=== PATIENT | female | born 2000 | race Caucasian/White ===

== ENCOUNTER 2020-02-07 17:11 | Emergency (ER) | payer OTHER ==
--- NOTE | 2020-02-07 17:19 | PDOC ---
Rapid Medical Evaluation Time Seen by Provider: 02/07/20 17:16 Medical Evaluation: Allergies Allergy/AdvReac Type Severity Reaction Status Date / Time No Known Allergies Allergy Verified 10/10/13 15:40 02/07/20 17:17 CC: rt flank pain radiaiting to rt back since wednesday now worsening sharp pain with nausea. No other complaints Exam: rt cva , flank tenderness, vss Plan: labs, urine, Discharge Disposition - Diagnosis Flank pain - Referrals - Patient Instructions - Post Discharge Activity
[2020-02-07] MEDS ORDERED: SODIUM CHLORIDE 1,000 ML IV STA (17:20)
[2020-02-07 17:23] VITALS: BP 144/90; PULSE 112; TEMP 99.3; BMI 30.8
[2020-02-07 18:48] LABS: BASO % 0.8 % (0-2.0); EOS % 5.2 % (0-4.5); HEMATOCRIT 26.3 % (32.4-45.2); MCHC 30.4 g/dl (32.0-36.0); MEAN CELL VOLUME 61.9 fl (80-96); MEAN PLT VOLUME 8.7 fl (7.5-11.1); MONO % 7.6 % (3.8-10.2); NEUT % 60.4 % (42.8-82.8); PLATELET COUNT 342 K/MM3 (134-434); RBC 4.26 M/mm3 (3.60-5.2); RDW 17.6 % (11.6-15.6); WHITE BLOOD COUNT 6.8 K/mm3 (4.0-10.0)
[2020-02-07 18:54] LABS: MCH 18.8 pg (25.7-33.7)
--- NOTE | 2020-02-07 18:57 | PDOC ---
History of Present Illness - General Chief Complaint: Pain Stated Complaint: DIZZI Time Seen by Provider: 02/07/20 17:16 History Source: Patient Exam Limitations: No Limitations - History of Present Illness Initial Comments: 02/07/20 18:53 Patient is a 19-year-old female with a history of hyperlipidemia who presents to the ED with complaint of 2 months of feeling dizzy. She describes the dizziness as feeling like she is moving when she has not. She states the symptoms started after her grandfather and after her sister was getting and moving out. She denies any chest pain, shortness of breath, weakness. She states that she was seen at an urgent care center and told that she was slightly anemic. The patient states that she has been feeling very anxious lately and believes her symptoms are likely secondary to feeling anxious. She also admits to having some right-sided abdominal pain that has been ongoing for the last 5 days. She states the pain is in her right flank region and radiates to her back. She denies any dysuria, hematuria, frequency or urgency. She denies any chest pain or shortness of breath. She denies any nausea or vomiting. She has been having normal bowel movements. She states her LMP was 02/02/2020. Past History - Medical History Allergies/Adverse Reactions: Allergies Allergy/AdvReac Type Severity Reaction Status Date / Time No Known Allergies Allergy Verified 10/10/13 15:40 Home Medications: Ambulatory Orders NK [No Known Home Medication] 02/07/20 - Reproductive History Is Patient Now?: No - Psycho-Social/Smoking History Smoking History: Never smoked Have you smoked in the past 12 months: No Number of Cigarettes Smoked Daily: 0 Information on smoking cessation initiated: No - Substance Abuse Hx (Audit-C & DAST Scrn) How often the patient has a drink containing alcohol: Never Score: In Men: 4 or > Positive; In Women: 3 or > Positive: 0 Screen Result (Pos requires Nsg. Audit-10AR): Negative Review of Systems - Review of Systems Comments:: 02/07/20 18:55 - Review of Systems Able to Perform ROS?: Yes Constitutional: No: Fever, Chills, Loss of Appetite, Night Sweats, Weakness HEENTM: No: Eye Pain, Vision changes, Ear Pain, Throat Pain, Throat Swelling, Mouth Pain, Difficulty Swallowing Respiratory: No: Cough, Shortness of Breath, Wheezing, Sputum Production Cardiac (ROS): No: Chest Pain, Chest Tightness, Palpitations, Irregular Heart Beat, Edema ABD/GI: No: Nausea, Vomiting, Abdominal Pain, Diarrhea; positive: Right-sided flank pain radiating to the back : No Dysuria, No Hematuria, No Frequency, No Urgency, No Vaginal Discharge/Pain Musculoskeletal: No: Muscle Pain, Back Pain, Joint Pain, Muscle Weakness, Neck Pain Integumentary: No: Lesions, Rash Neurological: No: Headache, Numbness, Tingling, Weakness, Speech Difficulties; positive: Dizziness *Physical Exam - Vital Signs Last Vital Signs Temp Pulse Resp BP Pulse Ox 99.3 F 112 H 17 144/90 99 02/07/20 17:16 02/07/20 17:16 02/07/20 17:16 02/07/20 17:16 02/07/20 17:16 - Physical Exam 02/07/20 18:56 - Physical Exam General Appearance: Nourished, Appropriately Dressed, No Distress HEENT: EOMI, Normal Voice, Hearing Grossly Normal; slightly pale conjunctive appreciated. Neck: Supple, No Lymphadenopathy (R), No Lymphadenopathy (L), No Rigidity, No Decreased range of motion Respiratory/Chest: Lungs Clear, Normal Breath Sounds. No Respiratory Distress, No Accessory Muscle Use Cardiovascular: Regular Rhythm, Regular Rate, S1, S2 Gastrointestinal/Abdominal: Normal Bowel Sounds, Soft. Non-tender, No Guarding, No Rebound, No Rigidity; no significant abdominal tenderness to palpation. There is slight right upper quadrant abdominal tenderness with a negative Hernandez sign. No CVA tenderness bilaterally. No rebound, guarding or rigidity ap preciated. Negative Rovsing sign. Musculoskeletal: Normal Inspection. No Decreased Range of Motion Extremity: Normal Capillary Refill, Normal Inspection Integumentary: Normal Color, Dry. No Rash Neurologic: intelligence chief II-XII NML intact, Fully Oriented, Alert, Normal Mood/Affect, Normal Response gait without ataxia. 5/5 strength bilateral upper and lower extremities. Sensation intact to light touch to the bilateral upper and lower extremities. ED Treatment Course - LABORATORY CBC & Chemistry Diagram: 02/07/20 18:20 02/07/20 18:20 - Medications Given in the ED: ED Medications Discontinued Medications Generic Name Dose Route Start Last Admin Trade Name Freq PRN Reason Stop Dose Admin Sodium Chloride 1,000 mls @ 1,000 mls/hr 02/07/20 17:20 02/07/20 18:37 Normal Saline - IV 02/07/20 18:19 1,000 mls/hr ASDIR STA Administration Medical Decision Making - Medical Decision Making 02/07/20 18:57 Assessment: Patient is a 19-year-old female with the sensation of dizziness for the last 2 months induced by the of her grandfather and her sister moving out. The patient states that she feels this is likely secondary to anxiety. She is also complaining of some right flank pain that is radiating to her back. Plan: -Saline lock and labs ordered -Will reassess -1 L of NS ordered 02/07/20 21:05 The patient has been made aware that her labs are stable except her hemoglobin is 8. She did mention that she was anemic but she did not remember the number. The patient does deny having heavy menstrual cycles. At this time, we will center for further evaluation as an outpatient with hematology/oncology. She states she has an appointment with primary care on February 15. She has been encouraged to purchase [id number] iron and take that until she follows up with hematology. She understands and agrees with this treatment plan and she is stable for discharge. Iron studies added onto the lab work for further evaluation. Discharge - Discharge Information Problems reviewed: Yes Clinical Impression/Diagnosis: Flank pain, Dizziness Anemia Qualifiers: Anemia type: other cause Other causes of anemia: other cause, not classified Qualified Code(s): D64.89 - Other specified anemias Condition: Stable Disposition: HOME - Follow up/Referral Referrals: Brittney Ferrer MD [Staff Physician] - Call tomorrow (For an appointment within 1 week) - Patient Discharge Instructions Patient Printed Discharge Instructions: DI for Iron Deficiency Anemia-Adult, DI for Dizziness-Nonvertigo Additional Instructions: You should purchase [id number] iron tablets and take them until you follow-up with hematology. Be sure to follow-up with a lathe tender within 1 week for repeat evaluation. Follow-up with your primary doctor as scheduled on February 15. Get plenty of rest and drink plenty of fluids. - Post Discharge Activity
[2020-02-07 19:18] LABS: ALBUMIN 4.1 g/dl (3.4-5.0); BILIRUBIN,TOTAL 0.5 mg/dL (0.2-1); BLOOD UREA NITROGEN 10.3 mg/dL (7-18); CALCIUM 9.3 mg/dL (8.5-10.1); CREATININE 0.8 mg/dL (0.55-1.3); TOT PROT 7.9 g/dl (6.4-8.2)
[2020-02-07 19:41] LABS: EPI CELLS 3 /uL (0-25.1); HYALINE CASTS 0 /uL (0-3.1); URINE APPEARANCE CLEAR; URINE BACTERIA 91 /uL (0-1359); URINE BILIRUBIN NEGATIVE (NEGATIVE); URINE COLOR YELLOW; URINE GLUCOSE (UA) NEGATIVE (NEGATIVE); URINE KETONE NEGATIVE (NEGATIVE); URINE LEUK ESTERASE TRACE (NEGATIVE); URINE NITRITE NEGATIVE (NEGATIVE); URINE PROTEIN NEGATIVE (NEGATIVE); URINE RBC 1 /uL (0-23.9); URINE UROBILINOGEN 0.2 mg/dL (0.2-1.0); URINE WBC 8 /uL (0-25.8)
[2020-02-07 19:59] LABS: ANISOCYTOSIS 3+; ROULEAU 3+
[2020-02-07 20:00] LABS: PLATELET ESTIMATE ADEQUATE
== END 2020-02-07 22:01 | disposition home or self-care (01) ==
LOC: JER 17:11
PROC: 3E0337Z Introduction of Electrolytic and Water Balance Substance into Peripheral Vein, Percutaneous Approach (ICD-10-PCS; principal; 2020-02-07)
DX: R10.9 Unspecified abdominal pain (principal); D64.89 Other specified anemias
CPT/HCPCS: 36415; 80053; 81003; 82728; 83540; 83550; 83690; 83735; 84703; 85025; 87086; 99284-25